=== PATIENT | male | born 1960 | race Caucasian/White ===

== ENCOUNTER 2024-03-03 06:40 | Emergency (ER) | payer BC ==
[~2024-03-03] VITALS: Ht 190.5 cm; Wt 130.6 kg
[~2024-03-03 06:40] MED LIST: HYDROCHLOROTHIA25 MG PO; LISINOPRIL40 MG PO
[2024-03-03 06:45] VITALS: PULSE 98; RESP 22; TEMP 98.9
[2024-03-03] MEDS ORDERED: ASPIRIN 81 MG CHEW TAB PO ONE (07:15)
[2024-03-03 07:18] LABS: BASOPHILS # (AUTO) 0.1 (0.0-0.1); BASOPHILS % 1.1 % (0.0-1.0); EOSINOPHILS # (AUTO) 0.3 (0.0-0.4); HEMATOCRIT 48.3 % (38.2-49.6); HEMOGLOBIN 16.3 g/dL (14.0-18.0); LYMPHOCYTES # (AUTO) 1.1 (1.0-3.2); LYMPHOCYTES % 14.9 % (18.0-39.1); MEAN CORPUSCULAR HEMOGLOBIN 33.7 pg (28-32); MEAN CORPUSCULAR HGB CONC 33.7 g/dL (31-35); MONOCYTES # (AUTO) 1.1 (0.2-0.8); MONOCYTES % 15.1 % (4.4-11.3); NEUTROPHILS # (AUTO) 4.8 (2.1-6.9); NEUTROPHILS % 64.2 % (38.7-80.0); PLATELET COUNT 174 x10e3/uL (140-360); RED BLOOD COUNT 4.83 x10e6/uL (4.3-5.7); RED CELL DISTRIBUTION WIDTH 11.8 % (11.7-14.4); WHITE BLOOD COUNT 7.44 x10e3/uL (4.8-10.8)
[2024-03-03 07:37] LABS: ALBUMIN 3.8 g/dL (3.5-5.0); ALBUMIN/GLOBULIN RATIO 1.4 (0.8-2.0); ANION GAP 13.8 mmol/L (8-16); BILIRUBIN,TOTAL 0.5 mg/dL (0.2-1.2); CALCIUM 9.4 mg/dL (8.4-10.2); CREATININE, SERUM 0.82 mg/dL (0.72-1.25); POTASSIUM 3.8 mmol/L (3.5-5.1); TOTAL PROTEIN 6.6 g/dL (6.5-8.1)
[2024-03-03 07:43] LABS: TROPONIN I 0.004 ng/mL (0-0.300)
[2024-03-03 07:44] VITALS: PULSE 95; RESP 22; O2SAT 93
[2024-03-03] MEDS: LEVOFLOXACIN 750MG/D5W 150ML 150 ML IV SCH (07:45)
[2024-03-03] MEDS: METHYLPREDNISOLONE SOD SUCC 125 MG/2ML VIAL IV ONE (07:45)
[2024-03-03 07:46] LABS: B-TYPE NATRIURETIC PEPTIDE2 11.6 pg/mL (0-100)
[2024-03-03] MEDS: ALBUTEROL/IPRATROPIUM 3 ML NEB NEB ONE (07:49)
[2024-03-03 08:04] VITALS: RESP 22
[2024-03-03 09:00] VITALS: BP 148/83
[2024-03-03] MEDS ORDERED: VENTOLIN HFA18 GM INH (09:23)
[2024-03-03] MEDS ORDERED: PREDNISONE50 MG PO (09:23)
[2024-03-03] MEDS ORDERED: LEVOFLOXACIN750 MG PO (09:23)
[2024-03-03 09:40] VITALS: PULSE 103; O2SAT 91
== END 2024-03-03 10:02 | disposition home or self-care (01) ==
LOC: ER 07:34
DX: R06.02 Shortness of breath (principal); J44.1 Chronic obstructive pulmonary disease with (acute) exacerbation; R05.9 Cough, unspecified; I10 Essential (primary) hypertension
CPT/HCPCS: 36415; 71045; 80053; 82550; 83605; 83880; 84484; 85025; 87040; 93005; 94640; 94799; 99284; J2919